=== PATIENT | male | born 1965 | race Caucasian/White ===

== ENCOUNTER 2022-02-27 08:15 | Outpatient (CLI) | payer OTHER, SELFPAY ==
[2022-02-27 13:41] LABS: Chloride* 104 mmol/L (96-114); Potassium* 4.8 mmol/L (3.6-5.1); Sodium* 140 mmol/L (135-149)
[2022-02-27 13:44] LABS: Blood Urea Nitrogen* 22 mg/dL (7-30); Carbon Dioxide* 30 mmol/L (20-32); Cholesterol* 191 mg/dL (90-199); Creatinine* 0.9 mg/dL (0.5-1.5); Estimated Glomerular Filt Rate 100 ml/min; Glucose* 101 mg/dL (60-115); Triglycerides* 108 mg/dL (40-149)
[2022-02-27 13:45] LABS: Calcium* 9.4 mg/dL (8.4-10.6); HDL Cholesterol* 40 mg/dL (>=40); LDL Cholesterol Calculated 129 mg/dL (<100)
== END 2022-02-27 08:16 | disposition home or self-care (01) ==
PROVIDERS: PCP Physician Assistant Medical; Visit Provider Physician Assistant Medical
DX: E11.9 Type 2 diabetes mellitus without complications (principal); I10 Essential (primary) hypertension
CPT/HCPCS: 80048; 80061

== ENCOUNTER 2022-05-04 18:22 | Emergency (ER) | payer OTHER, SELFPAY ==
[2022-05-04 18:52] VITALS: BP 151/88; PULSE 95; RESP 20; TEMP 36.6; O2SAT 95; BMI 37.8
--- NOTE | 2022-05-04 19:09 | CRLHL7_ITS ---
For Patients: As a result of the Century Cures Act, medical imaging exams and procedure reports are released immediately into your electronic medical record. You may view this report before your referring provider. If you have questions, please contact your health care provider. INDICATION: Left lower quadrant pain. TECHNIQUE: CT abdomen and pelvis acquired with 115 cc Isovue 370 IV contrast. COMPARISON: March 16, 2020. FINDINGS: Lower chest: Scattered dependent atelectasis. Liver: Unremarkable. Normal in size and attenuation. No suspicious masses. Gallbladder and bile ducts: Unremarkable. No stones or inflammation. No biliary dilatation. Pancreas: Unremarkable. No mass or inflammation. Spleen: Unremarkable. Normal in size. No masses. Adrenal glands: Unremarkable. No nodules. Kidneys: Tiny hypodensities in both kidneys, too small to characterize. No suspicious masses, stones, or hydronephrosis. GI tract: Acute sigmoid diverticulitis. Normal appendix. Vasculature: Abdominal aorta is normal in caliber. Mesenteric arteries are patent. Lymph nodes: Stable prominent periportal/peripancreatic lymph nodes. Peritoneum/Abdominal Wall: Tiny fat containing umbilical hernia. No sign of mass or infiltration. No free air or significant free fluid. Pelvis: Dystrophic prostatic calcifications with TURP defect Verus utricle cyst. Mildly distended bladder with circumferential wall thickening. Bones: Degenerative changes. IMPRESSION: Acute uncomplicated sigmoid diverticulitis. No drainable fluid collections. Please note that all CT scans at this facility use dose modulation, iterative reconstruction, and/or weight-based dosing when appropriate to reduce radiation dose to as low as reasonably achievable. Dictated by Mart Rivas MD @ 05/04/2022 8:28:42 PM (Electronically Signed)
--- NOTE | 2022-05-04 19:10 | ED_ITS ---
HPI - Abdominal Pain General Chief Complaint: Abdominal Pain Stated Complaint: Diverticulitis Time Seen by Provider: 05/04/22 18:28 History of Present Illness HPI narrative: This 56-year-old male comes in with left lower quadrant abdominal pain that began about 4 5 days ago. He states that he has a history of diverticulitis. He had some Augmentin at home that he did not take that was prescribed for him a few months ago for a sinus infection. He states that he was feeling better when taking this medicine but now today his pain is worsened. He does not report any fevers. There is no blood in the toilet. He does have some increased pain when bearing down for a bowel movement. Related Data Home Medications Medication Instructions Recorded Confirmed fluticasone propionate 50 1 spray intranasal QDAY 02/28/22 05/04/22 mcg/actuation nasal spray,suspension (Children's Flonase Allergy Relief) lancets 30 gauge (Advocate Lancet) 02/28/22 05/04/22 lisinopril 20 mg tablet 20 mg PO QDAY 02/28/22 05/04/22 propranolol 60 mg capsule,24 60 mg PO QDAY 02/28/22 05/04/22 hr,extended release blood sugar diagnostic (Accu-Chek #10 ea 05/04/22 05/04/22 Guide test strips) blood-glucose meter (Accu-Chek #1 ea 05/04/22 05/04/22 Guide Glucose Meter) lancets (Accu-Chek Softclix #100 ea 05/04/22 05/04/22 Lancets) lisinopril 10 mg tablet 10 mg PO 05/04/22 05/04/22 Previous Rx's Medication Instructions Recorded amlodipine 5 mg tablet 5 mg PO QDAY #90 tabs 03/01/22 amoxicillin 875 mg-potassium 1 tab PO BID #20 tabs 03/01/22 clavulanate 125 mg tablet metformin 500 mg tablet,extended 1,500 mg PO QDAY #270 tabs 04/19/22 release 24 hr Allergies Allergy/AdvReac Type Severity Reaction Status Date / Time codeine AdvReac Unknown Vomiting Verified 05/04/22 17:39 and flushed Review of Systems Status of ROS Reports: 10 or more systems reviewed and unremarkable except as noted in History and below Narrative Constitutional: No fevers, no weight gain or loss. Eyes: No discharge. No vision changes. HENT: No congestion, no sore throat, no ear pain. Cardiovascular: No chest pain, no palpitations. Respiratory: No shortness of breath, no wheezes, no cough. Gastrointestinal: Abdominal pain as described above. No vomiting or diarrhea. Genitourinary: No dysuria, no hematuria. Musculoskeletal: Normal range of motion. Skin: No rashes, no pruritis. Neurological: No dizziness, weakness, sensory change, speech change. Endo/Heme/Allergies: No bruising or bleeding. No polydipsia. Pysch: no suicidality, no anxiety, no insomnia. All other systems reviewed and are negative. [facility] Medical History (Updated 05/04/22 @ 20:52 by Reji Bear MD) Encounter for follow-up History of undescended testicle Surgical History (Updated 02/15/22 @ 08:39 by Bri Drake) History of colonoscopy History of testicular surgery Family History (Updated 02/15/22 @ 08:40 by Bri Drake) Other Dementia Social History Smoking Status: Never smoker Do you use any of these nicotine containing products: None Second hand tobacco smoke exposure: No How often do you have a drink containing alcohol: 2-4 times a month How many standard drinks containing alcohol do you have on a typical day: 1 or 2 How often do you have six or more drinks on one occasion: Never AUDIT-C Alcohol total score: 2 Non-prescribed substance use: denies use Exam Narrative: Exam Narrative: Constitutional: Well-developed, well-nourished, no acute distress. HEENT: Normocephalic, atraumatic. Neck: Normal range of motion. Nontender. Supple. Heart: Regular. No murmurs. Normal rate. Intact distal pulses. Lungs: Clear to auscultation. No chest discomfort. No wheezes, rhonchi, or rales. Abdomen: Normal bowel sounds. Tenderness in the left lower quadrant. No rebound tenderness. Genitalia: Deferred. Back: No midline tenderness. Normal range of motion. Extremities: Normal range of motion. No injury. Skin: Intact. No rash. Warm. No erythema or pallor. Neurologic: No altered sensation. No weakness. Alert and oriented. Psychiatric: No suicidality. No anxiety or depression. No insomnia. Nursing notes and vitals signs are reviewed. Const: Vital Signs, click to edit/add: Vital Signs - 24 hr 05/04/22 18:52 Temperature 97.8 F Pulse Rate [Left P ulse Oximeter] 95 Respiratory Rate 20 Blood Pressure [Le ft Upper Arm] 151/88 H Pulse Oximetry 95 Oxygen Delivery Me thod Room Air Course Vital Signs Vital signs: Initial Vital Signs Temperature 97.8 F 05/04/22 18:52 Temperature Source Temporal Artery Scan 05/04/22 18:52 Pulse Rate 95 05/04/22 18:52 Respiratory Rate 20 05/04/22 18:52 Blood Pressure 151/88 H 05/04/22 18:52 Blood Pressure Mean 109 05/04/22 18:52 Blood Pressure Position Sitting 05/04/22 18:52 Pulse Oximetry 95 05/04/22 18:52 Oxygen Delivery Method 05/04/22 18:52 Vital Signs Temperature 97.8 F 05/04/22 18:52 Pulse Rate 95 05/04/22 18:52 Respiratory Rate 20 05/04/22 18:52 Blood Pressure 151/88 H 05/04/22 18:52 Pulse Oximetry 95 05/04/22 18:52 Oxygen Delivery Method 05/04/22 18:52 Temperature 97.8 F 05/04/22 18:52 Pulse Rate 95 05/04/22 18:52 Respiratory Rate 20 05/04/22 18:52 Blood Pressure 151/88 H 05/04/22 18:52 Pulse Oximetry 95 05/04/22 18:52 Oxygen Delivery Method 05/04/22 18:52 MDM - Abdominal Pain MDM Narrative Medical decision making narrative: This patient comes in thinking that he had a recurrent diverticulitis that started about 5 days ago. He had a full course of Augmentin at home that he had not taken previously. He started taking this medicine twice daily for the past 4 days and started to feel better until today when he had some worsening pain. He has not had any fever or blood in the toilet. An IV was established here and labs were drawn. His labs returned with reassuring findings. His white count is just slightly elevated. CT imaging of the abdomen and pelvis does show evidence of an uncomplicated acute diverticulitis. I encouraged the patient to continue the Augmentin for the full course of treatment. He also received a prescription for Toradol. He is okay to return home and should come back here if worsening symptoms happen. Lab Data Labs: Lab Results 05/04/22 05/04/22 05/04/22 Range/Units 19:15 19:20 19:20 WBC 11.95 H (4.50-11.00) K/uL RBC 5.36 (4.30-5.90) m/uL Hgb 16.3 (13.5-17.5) gm/dL Hct 46.9 (37.0-53.0) % MCV 88 (80-100) fL MCH 30 (26-34) pg MCHC 35 (32-36) gm/dL RDW Coeff of Abdirizak 12.7 (11.5-15.5) % Plt Count 222 (140-440) K/uL Neut % (Auto) 72.7 H (42.0-72.0) % Lymph % (Auto) 17.9 L (20-44) % [place] % (Auto) 7.4 (0.0-11.0) % Eos % (Auto) 1.4 (0.0-7.0) % Baso % (Auto) 0.3 (0.0-3.0) % Neut # (Auto) 8.70 H (1.7-7.0) K/uL Lymph # (Auto) 2.10 (0.90-2.90) K/uL [place] # (Auto) 0.90 (0.00-0.90) K/UL Eos # (Auto) 0.20 (0.00-0.50) K/uL Baso # (Auto) 0.00 (0.00-0.30) K/uL Abs Immat Gran (auto) 0.03 (0.00-0.30) K/uL Sodium 140 (135-149) mmol/L Potassium 4.5 (3.6-5.1) mmol/L Chloride 101 (96-114) mmol/L Carbon Dioxide 28 (20-32) mmol/L BUN 15 (7-30) mg/dL Creatinine 0.9 (0.5-1.5) mg/dL Estimated Creat Clear 82.70 Estimated GFR 100 ml/min Glucose 102 (60-115) mg/dL Calcium 9.6 (8.4-10.6) mg/dL Urine Color Yellow (Yellow) Urine Appearance Clear (Clear) Urine pH 5.5 (5.0-8.5) Ur Specific [place] >= 1.030 (1.000-1.030) Urine Protein Negative (Negative) Urine Glucose (UA) Negative (Negative) Urine Ketones Negative (Negative) Urine Blood Negative (Negative) Urine Nitrite Negative (Negative) Urine Bilirubin Negative (Negative) Urine Urobilinogen 0.2 (0.2-1.0) Ur Leukocyte Esterase Negative (Negative) Imaging Data CT scan - abdomen: Radiologist's impression: Acute uncomplicated sigmoid diverticulitis. No drainable fluid collections. Discharge Plan Discharge Clinical Impression: Diverticulitis Patient Disposition: Home, Self-Care Condition: Stable Additional Instructions: Take medication as prescribed. Increase diet as tolerated. Follow up with MD or return if worsening. Prescriptions: No Action amoxicillin-pot clavulanate 875-125 mg tablet 1 tab PO BID Qty: 20 0RF Rx Instructions: sinus infection amlodipine 5 mg tablet 5 mg PO QDAY Qty: 90 0RF (DME) Accu-Chek Guide test strips Strip See Rx Instructions .ROUTE .MEDSUPPLY Qty: 10 Label Comments: USE TO TEST BLOOD SUGAR ONCE DAILY IN THE MORNING FASTING Rx Instructions: As directed lisinopril 10 mg tablet 10 mg PO (DME) lancets [Accu-Chek Softclix Lancets] Misc See Rx Instructions .ROUTE .MEDSUPPLY Qty: 100 Rx Instructions: As directed (DME) blood-glucose meter [Accu-Chek Guide Glucose Meter] Misc See Rx Instructions .ROUTE .MEDSUPPLY Qty: 1 Label Comments: USE DIRECTED Rx Instructions: As directed (DME) lancets [Advocate Lancet] 30 gauge misc See Rx Instructions .Route Rx Instructions: As directed lisinopril 20 mg tablet 20 mg PO QDAY fluticasone propionate [Children's Flonase Allergy Rlf] 50 mcg/actuation spray,suspension 1 spray intranasal QDAY Rx Instructions: administer into each nostril propranolol 60 mg capsule,extended release 24 hr 60 mg PO QDAY metformin 500 mg tablet extended release 24 hr 1,500 mg PO QDAY Qty: 270 1RF Follow Up/Referrals: Shaneka Weber PA-C [Primary Care Provider] - Stand Alone Forms: [facility] Info Instructions
[2022-05-04 19:33] LABS: Basophils Percent Auto 0.3 % (0.0-3.0); Eosinophils Percent Auto 1.4 % (0.0-7.0); Hematocrit 46.9 % (37.0-53.0); Hemoglobin* 16.3 gm/dL (13.5-17.5); Immature Granulocytes Abs Auto 0.03 K/uL (0.00-0.30); Lymphocytes Percent Auto 17.9 % (20-44); Mean Corpuscular HGB Conc 35 gm/dL (32-36); Mean Corpuscular Hemoglobin 30 pg (26-34); Mean Corpuscular Volume 88 fL (80-100); Monocytes Percent Auto 7.4 % (0.0-11.0); Neutrophils Percent Auto 72.7 % (42.0-72.0); Platelet Count* 222 K/uL (140-440); RDW Coefficient of Variation % 12.7 % (11.5-15.5); Red Blood Count 5.36 m/uL (4.30-5.90); White Blood Count* 11.95 K/uL (4.50-11.00)
[2022-05-04 19:34] LABS: Appearance Urine Clear (Clear); Bilirubin Urine Negative (Negative); Blood Urine Negative (Negative); Color Urine Yellow (Yellow); Glucose Urine Negative (Negative); Ketones Urine Negative (Negative); Leukocyte Esterase Urine Negative (Negative); Nitrite Urine Negative (Negative); Protein Urine Negative (Negative); Specific Gravity Urine >= 1.030 (1.000-1.030); Urobilinogen Urine 0.2 (0.2-1.0); pH Urine 5.5 (5.0-8.5)
[2022-05-04 19:34] LABS: Slide Review Reflex No
[2022-05-04 19:49] LABS: Chloride* 101 mmol/L (96-114); Potassium* 4.5 mmol/L (3.6-5.1); Sodium* 140 mmol/L (135-149)
[2022-05-04 19:52] LABS: Blood Urea Nitrogen* 15 mg/dL (7-30); Carbon Dioxide* 28 mmol/L (20-32); Creatinine* 0.9 mg/dL (0.5-1.5); Estimated Glomerular Filt Rate 100 ml/min; Glucose* 102 mg/dL (60-115)
[2022-05-04 19:53] LABS: Calcium* 9.6 mg/dL (8.4-10.6)
[2022-05-05 10:27] LABS: Amorphous Sediment Urine Many; RBC Urine 0-2 (0-2); WBC Urine 0-2 (0-5)
== END 2022-05-04 21:09 | disposition home or self-care (01) ==
PROVIDERS: Emergency Provider Emergency Medicine Emergency Medical Services; PCP Physician Assistant Medical
DX: K57.92 Diverticulitis of intestine, part unspecified, without perforation or abscess without bleeding (principal)
CPT/HCPCS: 36415; 74177; 80048; 81001; 85025; 99284; Q9967

== ENCOUNTER 2023-06-27 09:28 | Outpatient (CLI) | payer BC, SELFPAY | END 2023-06-27 09:29 | disposition home or self-care (01) | PROVIDERS: PCP Physician Assistant Medical; Visit Provider Physician Assistant Medical | DX: E11.9 Type 2 diabetes mellitus without complications (principal); Z12.5 Encounter for screening for malignant neoplasm of prostate; I10 Essential (primary) hypertension; N46.9 Male infertility, unspecified | CPT/HCPCS: 80053; 80061; 82043; 82570; 82607; 83540; 83550; 84153; 84403 ==

== ENCOUNTER 2024-11-14 07:55 | Outpatient (CLI) | payer BC, SELFPAY | END 2024-11-14 07:56 | disposition home or self-care (01) | LOC: NFLDREF 11-18 16:41 | PROVIDERS: PCP Physician Assistant Medical; Referring Provider Physician Assistant Medical; Visit Provider Physician Assistant Medical | DX: E11.9 Type 2 diabetes mellitus without complications (principal); R53.83 Other fatigue; Z13.6 Encounter for screening for cardiovascular disorders; Z12.5 Encounter for screening for malignant neoplasm of prostate; Z13.21 Encounter for screening for nutritional disorder; Z13.9 Encounter for screening, unspecified | CPT/HCPCS: 80053; 80061; 82043; 82570; 82607; 82728; 84443; G0103 ==